=== PATIENT | female | born 1970 | race Caucasian/White ===

== ENCOUNTER 2021-12-26 11:24 | Inpatient (IN) | payer BC ==
[~2021-12-26] VITALS: Ht 172.7 cm; Wt 85.3 kg
[2021-12-26 12:16] LABS: BASOPHILS % 0.2 % (0.0-1.0); EOSINOPHILS # (AUTO) 0.5 (0.0-0.4); EOSINOPHILS % 4.1 % (0.0-6.0); HEMATOCRIT 23.5 % (34.2-44.1); LYMPHOCYTES # (AUTO) 1.2 (1.0-3.2); LYMPHOCYTES % 10.8 % (18.0-39.1); MEAN CORPUSCULAR HEMOGLOBIN 22.5 pg (28-32); MEAN CORPUSCULAR HGB CONC 27.2 g/dL (31-35); MEAN CORPUSCULAR VOLUME 82.7 fL (81-99); MONOCYTES # (AUTO) 0.7 (0.2-0.8); MONOCYTES % 5.9 % (4.4-11.3); NEUTROPHILS # (AUTO) 8.6 (2.1-6.9); NEUTROPHILS % 78.6 % (38.7-80.0); PLATELET COUNT 399 x10e3/uL (140-360); RED BLOOD COUNT 2.84 x10e6/uL (3.6-5.1); RED CELL DISTRIBUTION WIDTH 19.6 % (11.7-14.4)
[2021-12-26 12:26] LABS: HEMOGLOBIN 6.4 g/dL (12.0-16.0)
[2021-12-26 12:35] LABS: ANION GAP 14.3 mmol/L (8-16); BLOOD UREA NITROGEN 8 mg/dL (7-26); CARBON DIOXIDE 24 mmol/L (22-29); CHLORIDE 106 mmol/L (98-107); CREATININE, SERUM 0.69 mg/dL (0.57-1.11); SODIUM 142 mmol/L (136-145)
[2021-12-26 12:36] LABS: ALANINE AMINOTRANSFERASE 12 IU/L (0-55); ALBUMIN 2.6 g/dL (3.5-5.0); ALBUMIN/GLOBULIN RATIO 0.7 (0.8-2.0); ALKALINE PHOSPHATASE 347 IU/L (40-150); BUN/CREATININE RATIO 12 (6-25); CALCIUM 7.8 mg/dL (8.4-10.2); CREATINE KINASE 22 IU/L (29-168); GLUCOSE 88 mg/dL (74-118); LIPASE 11 U/L (8-78)
[2021-12-26 12:41] LABS: POTASSIUM 2.3 mmol/L (3.5-5.1)
[2021-12-26 12:42] LABS: INR 1.28; PROTHROMBIN TIME 17.1 seconds (11.9-14.5)
[2021-12-26] MEDS ORDERED: POTASSIUM CHLORIDE 20 MEQ TAB CR PO STA (12:42)
[2021-12-26 12:43] LABS: PARTIAL THROMBOPLASTIN TIME 42.4 seconds (23.8-35.5)
[2021-12-26] MEDS ORDERED: ONDANSETRON HCL INJ 2MG/ML 2ML 2 MG/ML VIAL IV PRN (13:00)
[2021-12-26] MEDS ORDERED: SODIUM CHLORIDE FLUSH 10 ML SYR INJ PRN (13:00)
[2021-12-26] MEDS ORDERED: SODIUM CHLORIDE 0.9% 250ML 250 ML IV ONE (13:00)
[2021-12-26 13:16] LABS: CLARITY,URINE CLOUDY (CLEAR); COLOR,URINE YELLOW (YELLOW)
[2021-12-26 13:17] LABS: KETONES,URINE NEGATIVE (NEGATIVE); LEUKOCYTE ESTERASE ,URINE SMALL (NEGATIVE); NITRITE,URINE POSITIVE (NEGATIVE); PROTEIN,URINE DIPSTICK NEGATIVE (NEGATIVE); URINE UROBILINOGEN >=8 mg/dL (0.2 - 1)
[2021-12-26] MEDS: POTASSIUM CHLORIDE 20MEQ/100ML 100 ML IV SCH ×2 (13:18→15:30)
[2021-12-26 13:29] LABS: BACTERIA,URINE MANY /HPF; EPITHELIAL CELLS,URINE MANY /LPF; RBC,URINE 0-5 /HPF (0-5); WBC,URINE (MAN) >50 /HPF (0-5)
[2021-12-26] MEDS ORDERED: SODIUM CHLORIDE 0.9% 250ML 250 ML ONE (15:28)
[2021-12-26 20:00] VITALS: BP 101/76
[2021-12-26 21:11] LABS: FERRITIN 9.29 ng/mL (4.63-204.00)
[2021-12-26 22:25] VITALS: BP 101/76
[2021-12-26] MEDS ORDERED: FOLIC ACID 1 MG TAB PO ONE (23:45)
[2021-12-26 23:53] LABS: FERRITIN 10.89 ng/mL (4.63-204.00)
[2021-12-27] VITALS (7 sets, daily range): BP systolic 97–108; BP diastolic 60–69
[2021-12-27] MEDS ORDERED: SPIRONOLACTONE 25 MG TAB PO ONE
[2021-12-27] MEDS ORDERED: FUROSEMIDE INJ 10 MG/ML 4 ML VIAL IV ONE
[2021-12-27] MEDS: ACETAMINOPHEN 325 MG TAB PO PRN ×2 (01:42→23:20)
[2021-12-27] MEDS ORDERED: ACETAMINOPHEN 325 MG TAB ONE (01:47)
[2021-12-27 04:39] LABS: BASOPHILS % 0.4 % (0.0-1.0); EOSINOPHILS # (AUTO) 0.6 (0.0-0.4); EOSINOPHILS % 5.6 % (0.0-6.0); LYMPHOCYTES # (AUTO) 1.3 (1.0-3.2); LYMPHOCYTES % 11.6 % (18.0-39.1); MEAN CORPUSCULAR HEMOGLOBIN 22.6 pg (28-32); MEAN CORPUSCULAR HGB CONC 27.5 g/dL (31-35); MEAN CORPUSCULAR VOLUME 82.1 fL (81-99); MONOCYTES # (AUTO) 0.7 (0.2-0.8); MONOCYTES % 6.8 % (4.4-11.3); NEUTROPHILS # (AUTO) 8.2 (2.1-6.9); NEUTROPHILS % 75.2 % (38.7-80.0); PLATELET COUNT 351 x10e3/uL (140-360); RED BLOOD COUNT 2.79 x10e6/uL (3.6-5.1); RED CELL DISTRIBUTION WIDTH 18.7 % (11.7-14.4)
[2021-12-27 04:48] LABS: HEMATOCRIT 22.9 % (34.2-44.1)
[2021-12-27 04:51] LABS: HEMOGLOBIN 6.3 g/dL (12.0-16.0)
[2021-12-27 05:00] LABS: ALBUMIN 2.4 g/dL (3.5-5.0); ALBUMIN/GLOBULIN RATIO 0.8 (0.8-2.0); ANION GAP 15.8 mmol/L (8-16); CALCIUM 7.5 mg/dL (8.4-10.2); CREATININE, SERUM 0.62 mg/dL (0.57-1.11)
[2021-12-27 05:03] LABS: POTASSIUM 2.8 mmol/L (3.5-5.1)
[2021-12-27] MEDS: SPIRONOLACTONE 25 MG TAB PO SCH ×2 (09:06→17:29)
[2021-12-27] MEDS: IRON SUCROSE 100 MG in SODIUM CHLORIDE 0.9% 100 ML 100 ML IV SCH (09:06)
[2021-12-27] MEDS: FUROSEMIDE INJ 10 MG/ML 4 ML VIAL IV SCH ×2 (09:06→20:15)
[2021-12-27] MEDS: FOLIC ACID 1 MG TAB PO SCH (09:06)
[2021-12-27] MEDS ORDERED: SODIUM CHLORIDE 0.9% 1000ML 1,000 ML ONE (09:20)
[2021-12-27] MEDS ORDERED: SODIUM CHLORIDE 0.9% 250ML 250 ML IV ONE (11:00)
[2021-12-27] MEDS ORDERED: POTASSIUM CHLORIDE 20MEQ/100ML 200 ML IV ONE (11:30)
[2021-12-27] MEDS ORDERED: POTASSIUM CHLORIDE 20 MEQ TAB CR PO ONE (11:30)
[2021-12-27] MEDS ORDERED: GADOBENATE DIMEGLUMINE 1 ML IV ONE (13:58)
[2021-12-27] MEDS ORDERED: ALBUMIN 25% 12.5GM 50ML 100 ML IV ONE (14:02)
[2021-12-27 14:50] LABS: BODY FLUID APPEARANCE CLOUDY; BODY FLUID COLOR YELLOW; BODY FLUID TYPE PERITONEAL
[2021-12-27 16:42] LABS: RBC,BODY FLUID < 2000 cells/uL; WBC,BODY FLUID 91 cells/uL
[2021-12-27 17:42] LABS: LYMPHOCYTES,BODY FLUID 11 %; MONO/MACROPHG,BODY FLUID 81 %; NEUTROPHILS,BODY FLUID 5 %; OTHER CELLS,BODY FLUID 3 %
[2021-12-27] MEDS ORDERED: SODIUM CHLORIDE 0.9% 250ML 250 ML ONE (22:31)
[2021-12-28] VITALS (10 sets, daily range): BP systolic 99–135; BP diastolic 56–98
[2021-12-28 06:55] LABS: BASOPHILS # (AUTO) 0.1 (0.0-0.1); BASOPHILS % 0.4 % (0.0-1.0); EOSINOPHILS # (AUTO) 0.6 (0.0-0.4); EOSINOPHILS % 4.1 % (0.0-6.0); HEMATOCRIT 27.9 % (34.2-44.1); LYMPHOCYTES # (AUTO) 1.3 (1.0-3.2); LYMPHOCYTES % 9.5 % (18.0-39.1); MEAN CORPUSCULAR HEMOGLOBIN 24.5 pg (28-32); MEAN CORPUSCULAR HGB CONC 28.7 g/dL (31-35); MONOCYTES # (AUTO) 0.8 (0.2-0.8); MONOCYTES % 6.1 % (4.4-11.3); NEUTROPHILS # (AUTO) 10.6 (2.1-6.9); NEUTROPHILS % 79.4 % (38.7-80.0); PLATELET COUNT 376 x10e3/uL (140-360); RED BLOOD COUNT 3.26 x10e6/uL (3.6-5.1); RED CELL DISTRIBUTION WIDTH 19.1 % (11.7-14.4)
[2021-12-28 06:59] LABS: MEAN CORPUSCULAR VOLUME 85.6 fL (81-99)
[2021-12-28 07:19] LABS: ALBUMIN 2.6 g/dL (3.5-5.0); CALCIUM 7.8 mg/dL (8.4-10.2); CREATININE, SERUM 0.59 mg/dL (0.57-1.11)
[2021-12-28] MEDS: FUROSEMIDE INJ 10 MG/ML 4 ML VIAL IV SCH ×2 (08:38→20:23)
[2021-12-28] MEDS: SPIRONOLACTONE 25 MG TAB PO SCH ×2 (08:38→16:02)
[2021-12-28] MEDS: IRON SUCROSE 100 MG in SODIUM CHLORIDE 0.9% 100 ML 100 ML IV SCH (08:38)
[2021-12-28] MEDS: FOLIC ACID 1 MG TAB PO SCH (08:38)
[2021-12-28] MEDS ORDERED: FOLIC ACID 1 MG TAB PO SCH (09:00)
[2021-12-28] MEDS ORDERED: POTASSIUM CHLORIDE 20 MEQ TAB CR PO ONE ×2 (10:00→20:00)
[2021-12-28] MEDS ORDERED: CIPROFLOXACIN 400 MG/D5W 200ML 200 ML IV SCH (10:00)
[2021-12-28] MEDS ORDERED: ONDANSETRON HCL 4 MG ORAL DISINTEGRATING TAB PO PRN (10:15)
[2021-12-28] MEDS ORDERED: PROPOFOL IV EMULSION 10 MG/ML 20 ML VIAL ONE (11:52)
[2021-12-28] MEDS: CIPROFLOXACIN 400 MG/D5W 200ML 200 ML IV SCH ×2 (12:53→20:23)
[2021-12-28] MEDS ORDERED: POTASSIUM CHLORIDE 20 MEQ TAB CR PO SCH (13:00)
[2021-12-28] MEDS ORDERED: MIDAZOLAM HCL 2 MG/2 ML VIAL ONE (13:27)
[2021-12-28] MEDS ORDERED: FENTANYL CITRATE/PF 100MCG/2 ML INJ ONE (13:27)
[2021-12-28] MEDS ORDERED: PROPRANOLOL HCL 10 MG TAB PO ONE (19:10)
[2021-12-28] MEDS ORDERED: THIAMINE HCL INJ 100 MG/ML 2ML VIAL IV ONE (19:30)
[2021-12-28] MEDS: SUCRALFATE 1 GM/10 ML SUSP NG SCH (20:29)
[2021-12-28] MEDS: ACETAMINOPHEN 325 MG TAB PO PRN (20:45)
[2021-12-28] MEDS: POTASSIUM CHLORIDE 20 MEQ TAB CR PO SCH (21:24)
[2021-12-29] VITALS (8 sets, daily range): BP systolic 96–112; BP diastolic 58–71
[2021-12-29] MEDS: POTASSIUM CHLORIDE 20 MEQ TAB CR PO SCH (02:20)
[2021-12-29] MEDS: Morphine 4mg Syringe 4 MG/ML INJ IV PRN ×3 (06:50→21:01)
[2021-12-29] MEDS: SUCRALFATE 1 GM/10 ML SUSP NG SCH ×4 (07:30→20:45)
[2021-12-29] MEDS: PROPRANOLOL HCL 10 MG TAB PO SCH ×2 (09:05→16:32)
[2021-12-29] MEDS: SPIRONOLACTONE 25 MG TAB PO SCH ×3 (09:05→20:45)
[2021-12-29] MEDS: FUROSEMIDE INJ 10 MG/ML 4 ML VIAL IV SCH ×2 (09:05→21:00)
[2021-12-29] MEDS: IRON SUCROSE 100 MG in SODIUM CHLORIDE 0.9% 100 ML 100 ML IV SCH (09:05)
[2021-12-29] MEDS: THIAMINE HCL INJ 100 MG/ML 2ML VIAL IV SCH (09:05)
[2021-12-29] MEDS: FOLIC ACID 1 MG TAB PO SCH (09:05)
[2021-12-29] MEDS: CIPROFLOXACIN 400 MG/D5W 200ML 200 ML IV SCH ×2 (09:05→20:45)
[2021-12-29 09:43] LABS: BASOPHILS % 0.2 % (0.0-1.0); EOSINOPHILS # (AUTO) 0.6 (0.0-0.4); EOSINOPHILS % 4.6 % (0.0-6.0); HEMATOCRIT 29.6 % (34.2-44.1); HEMOGLOBIN 8.7 g/dL (12.0-16.0); LYMPHOCYTES # (AUTO) 1.3 (1.0-3.2); LYMPHOCYTES % 9.5 % (18.0-39.1); MEAN CORPUSCULAR HEMOGLOBIN 24.4 pg (28-32); MEAN CORPUSCULAR HGB CONC 29.4 g/dL (31-35); MEAN CORPUSCULAR VOLUME 82.9 fL (81-99); MONOCYTES # (AUTO) 0.8 (0.2-0.8); MONOCYTES % 5.8 % (4.4-11.3); NEUTROPHILS # (AUTO) 10.9 (2.1-6.9); NEUTROPHILS % 79.4 % (38.7-80.0); PLATELET COUNT 372 x10e3/uL (140-360); RED BLOOD COUNT 3.57 x10e6/uL (3.6-5.1); RED CELL DISTRIBUTION WIDTH 19.8 % (11.7-14.4)
[2021-12-29 10:22] LABS: ALBUMIN 2.7 g/dL (3.5-5.0); ANION GAP 15.2 mmol/L (8-16); CALCIUM 8.1 mg/dL (8.4-10.2); CREATININE, SERUM 0.63 mg/dL (0.57-1.11); POTASSIUM 3.2 mmol/L (3.5-5.1)
[2021-12-29] MEDS ORDERED: POTASSIUM CHLORIDE 20 MEQ TAB CR PO ONE ×2 (20:00→22:00)
[2021-12-30] VITALS (9 sets, daily range): BP systolic 94–101; BP diastolic 59–70
[2021-12-30] MEDS: SUCRALFATE 1 GM/10 ML SUSP NG SCH ×4 (07:30→20:42)
[2021-12-30] MEDS: PROPRANOLOL HCL 10 MG TAB PO SCH ×2 (09:00→16:00)
[2021-12-30] MEDS: FUROSEMIDE INJ 10 MG/ML 4 ML VIAL IV SCH ×2 (09:32→20:42)
[2021-12-30] MEDS: FOLIC ACID 1 MG TAB PO SCH (09:32)
[2021-12-30] MEDS: SPIRONOLACTONE 25 MG TAB PO SCH ×3 (09:32→20:42)
[2021-12-30] MEDS: THIAMINE HCL INJ 100 MG/ML 2ML VIAL IV SCH (09:36)
[2021-12-30] MEDS: CIPROFLOXACIN 400 MG/D5W 200ML 200 ML IV SCH ×2 (09:39→20:55)
[2021-12-30] MEDS: IRON SUCROSE 100 MG in SODIUM CHLORIDE 0.9% 100 ML 100 ML IV SCH (09:39)
[2021-12-30] MEDS: Morphine 4mg Syringe 4 MG/ML INJ IV PRN ×2 (13:12→20:48)
[2021-12-30] MEDS ORDERED: ASPIRIN325 MG PO (13:53)
[2021-12-30] MEDS ORDERED: ATENOLOL50 MG PO (13:54)
[2021-12-30] MEDS ORDERED: CLONIDINE HCL0.2 MG PO (13:55)
[2021-12-30] MEDS ORDERED: FUROSEMIDE40 MG PO (13:56)
[2021-12-30] MEDS ORDERED: SIMVASTATIN20 MG PO (13:57)
[2021-12-30] MEDS ORDERED: ZESTRIL10 MG PO (13:57)
[2021-12-30] MEDS ORDERED: ULTRAM 50MG50 MG PO (13:59)
[2021-12-31] VITALS (9 sets, daily range): BP systolic 90–99; BP diastolic 53–61
[2021-12-31] MEDS: Morphine 4mg Syringe 4 MG/ML INJ IV PRN ×3 (05:05→21:19)
[2021-12-31 06:57] LABS: BASOPHILS # (AUTO) 0.1 (0.0-0.1); BASOPHILS % 0.5 % (0.0-1.0); EOSINOPHILS # (AUTO) 0.4 (0.0-0.4); EOSINOPHILS % 3.6 % (0.0-6.0); HEMATOCRIT 31.8 % (34.2-44.1); HEMOGLOBIN 9.2 g/dL (12.0-16.0); LYMPHOCYTES % 10.4 % (18.0-39.1); MEAN CORPUSCULAR HEMOGLOBIN 25.1 pg (28-32); MEAN CORPUSCULAR HGB CONC 28.9 g/dL (31-35); MEAN CORPUSCULAR VOLUME 86.9 fL (81-99); MONOCYTES # (AUTO) 0.6 (0.2-0.8); MONOCYTES % 6.1 % (4.4-11.3); NEUTROPHILS # (AUTO) 7.6 (2.1-6.9); NEUTROPHILS % 78.8 % (38.7-80.0); PLATELET COUNT 307 x10e3/uL (140-360); RED BLOOD COUNT 3.66 x10e6/uL (3.6-5.1)
[2021-12-31 07:29] LABS: ALBUMIN 2.4 g/dL (3.5-5.0); ALBUMIN/GLOBULIN RATIO 0.8 (0.8-2.0); CREATININE, SERUM 0.64 mg/dL (0.57-1.11)
[2021-12-31] MEDS: SUCRALFATE 1 GM/10 ML SUSP NG SCH ×4 (08:03→20:15)
[2021-12-31] MEDS: MIDODRINE 2.5 MG TAB PO SCH ×3 (08:10→16:00)
[2021-12-31] MEDS: THIAMINE HCL INJ 100 MG/ML 2ML VIAL IV SCH (08:14)
[2021-12-31] MEDS: FUROSEMIDE 40 MG TAB PO SCH (08:14)
[2021-12-31] MEDS: IRON SUCROSE 100 MG in SODIUM CHLORIDE 0.9% 100 ML 100 ML IV SCH (08:14)
[2021-12-31] MEDS: SPIRONOLACTONE 25 MG TAB PO SCH ×3 (08:14→21:19)
[2021-12-31] MEDS: FOLIC ACID 1 MG TAB PO SCH (08:14)
[2021-12-31] MEDS: PROPRANOLOL HCL 10 MG TAB PO SCH ×2 (08:14→17:53)
[2021-12-31] MEDS: CIPROFLOXACIN 400 MG/D5W 200ML 200 ML IV SCH ×2 (09:22→20:15)
[2022-01-01] VITALS: BP 89/52
[2022-01-01 02:30] VITALS: BP_SYST 86; BP_SYST 89; BP_DIAS 53; BP_DIAS 55
[2022-01-01] MEDS: Morphine 4mg Syringe 4 MG/ML INJ IV PRN ×2 (02:30→08:03)
[2022-01-01 04:00] VITALS: BP 88/50
[2022-01-01] MEDS: SUCRALFATE 1 GM/10 ML SUSP NG SCH (07:59)
[2022-01-01 08:00] VITALS: BP 91/50
[2022-01-01] MEDS: PROPRANOLOL HCL 10 MG TAB PO SCH (08:06)
[2022-01-01] MEDS: FOLIC ACID 1 MG TAB PO SCH (08:06)
[2022-01-01] MEDS: SPIRONOLACTONE 25 MG TAB PO SCH (08:06)
[2022-01-01] MEDS: FUROSEMIDE 40 MG TAB PO SCH (08:06)
[2022-01-01] MEDS: MIDODRINE 2.5 MG TAB PO SCH (08:06)
[2022-01-01] MEDS: THIAMINE HCL INJ 100 MG/ML 2ML VIAL IV SCH (09:00)
[2022-01-01] MEDS: IRON SUCROSE 100 MG in SODIUM CHLORIDE 0.9% 100 ML 100 ML IV SCH (09:00)
[2022-01-01] MEDS: CIPROFLOXACIN 400 MG/D5W 200ML 200 ML IV SCH (09:00)
[2022-01-01] MEDS ORDERED: PROTONIX20 MG PO (10:55)
[2022-01-01] MEDS ORDERED: CARAFATE1 GM PO ×2 (10:56)
[2022-01-01] MEDS ORDERED: CIPRO500 MG PO (10:56)
[2022-01-01] MEDS ORDERED: ALDACTONE50 MG PO (10:57)
[2022-01-01] MEDS ORDERED: FUROSEMIDE40 MG PO (10:57)
== END 2022-01-01 11:05 | disposition home or self-care (01) | DRG 432 ==
LOC: ER 11:34 → ERHOLD 14:58 → MED/SURG 19:40 → MED/SURG3 12-29 23:18
PROVIDERS: ADMIT Family Medicine; ATTEND Family Medicine
PROC: 30233N1 Transfusion of Nonautologous Red Blood Cells into Peripheral Vein, Percutaneous Approach (ICD-10-PCS; 2021-12-26)
PROC: 0W9G3ZZ Drainage of Peritoneal Cavity, Percutaneous Approach (ICD-10-PCS; principal; 2021-12-27)
PROC: 06L38CZ Occlusion of Esophageal Vein with Extraluminal Device, Via Natural or Artificial Opening Endoscopic (ICD-10-PCS; 2021-12-28)
DX: K70.31 Alcoholic cirrhosis of liver with ascites (principal); I85.01 Esophageal varices with bleeding; K25.4 Chronic or unspecified gastric ulcer with hemorrhage; K76.6 Portal hypertension; N39.0 Urinary tract infection, site not specified; K43.9 Ventral hernia without obstruction or gangrene; K75.9 Inflammatory liver disease, unspecified; F10.10 Alcohol abuse, uncomplicated; Y90.0 Blood alcohol level of less than 20 mg/100 ml; D50.0 Iron deficiency anemia secondary to blood loss (chronic); Z98.84 Bariatric surgery status; Z83.3 Family history of diabetes mellitus; Z82.49 Family history of ischemic heart disease and other diseases of the circulatory system; E87.5 Hyperkalemia; Z20.822 Contact with and (suspected) exposure to COVID-19
CPT/HCPCS: 36415; 43239; 43255; 49083; 71045; 74183; 74470; 76700; 76705; 80053; 80320; 81001; 82040; 82105; 82140; 82270; 82550; 82553; 82607; 82728; 82746; 82977; 83540; 83690; 83880; 84132; 84157; 84466; 84484; 84702; 85025; 85045; 85610; 85730; 86704; 86706; 86708; 86803; 86850; 86900; 86920; 87070; 87086; 87186; 87205; 88112; 88305; 89051; 93005; 93975; 96360; 99251; 99284; J1756; J1940; J2250; J2270; J3010; J3411; J3480; J7030; J7050; P9016

== ENCOUNTER → 2022-01-27 | Outpatient (CLI) | payer BC ==
[~2022-01-27] MED LIST: ALBUMIN 25% 12.5GM 50ML 200 ML IV ONE; ALDACTONE50 MG PO; ASPIRIN325 MG PO; ATENOLOL50 MG PO; CARAFATE1 GM PO; CIPRO500 MG PO; CLONIDINE HCL0.2 MG PO; FUROSEMIDE40 MG PO; PROTONIX20 MG PO; SIMVASTATIN20 MG PO; ULTRAM 50MG50 MG PO; ZESTRIL10 MG PO
[2022-01-27 08:33] LABS: BASOPHILS % 0.5 % (0.0-1.0); EOSINOPHILS # (AUTO) 0.2 (0.0-0.4); EOSINOPHILS % 2.4 % (0.0-6.0); HEMATOCRIT 32.4 % (34.2-44.1); HEMOGLOBIN 9.3 g/dL (12.0-16.0); LYMPHOCYTES # (AUTO) 0.8 (1.0-3.2); LYMPHOCYTES % 13.4 % (18.0-39.1); MEAN CORPUSCULAR HEMOGLOBIN 27.8 pg (28-32); MEAN CORPUSCULAR HGB CONC 28.7 g/dL (31-35); MONOCYTES # (AUTO) 0.3 (0.2-0.8); MONOCYTES % 5.5 % (4.4-11.3); NEUTROPHILS # (AUTO) 4.8 (2.1-6.9); NEUTROPHILS % 77.9 % (38.7-80.0); PLATELET COUNT 252 x10e3/uL (140-360); RED BLOOD COUNT 3.34 x10e6/uL (3.6-5.1); RED CELL DISTRIBUTION WIDTH 21.1 % (11.7-14.4)
[2022-01-27 08:54] LABS: INR 1.12; PROTHROMBIN TIME 15.4 seconds (11.9-14.5)
[2022-01-27 08:55] LABS: PARTIAL THROMBOPLASTIN TIME 40.1 seconds (23.8-35.5)
[2022-01-27 09:21] LABS: ALBUMIN 3.1 g/dL (3.5-5.0); ALBUMIN/GLOBULIN RATIO 0.9 (0.8-2.0); ANION GAP 11.5 mmol/L (8-16); CALCIUM 8.8 mg/dL (8.4-10.2); CREATININE, SERUM 0.65 mg/dL (0.57-1.11); POTASSIUM 3.5 mmol/L (3.5-5.1)
== END ==
LOC: US 07:57
PROVIDERS: ATTEND Internal Medicine Gastroenterology
DX: K70.30 Alcoholic cirrhosis of liver without ascites (principal)
CPT/HCPCS: 36415; 76705; 80053; 85025; 85610; 85730